=== PATIENT | female | born 1990 | race Caucasian/White ===

== ENCOUNTER → 2019-07-08 | Emergency (ER) | payer OTHER ==
[~2019-07-08] VITALS: Ht 165.1 cm; Wt 61.2 kg
[~2019-07-08] MED LIST: ADDERALL 20 MG20 MG
== END | disposition home or self-care (01) ==
LOC: ER 14:19
DX: S30.0XXA Contusion of lower back and pelvis, initial encounter (principal); W18.39XA Other fall on same level, initial encounter; Y93.89 Activity, other specified; Y92.89 Other specified places as the place of occurrence of the external cause; Y99.8 Other external cause status

== ENCOUNTER 2019-11-19 12:35 | Emergency (ER) | payer OTHER ==
[~2019-11-19] VITALS: Ht 165.1 cm; Wt 63.5 kg
[2019-11-19] MEDS ORDERED: ZITHROMAX500 MG PO (15:48)
[2019-11-19] MEDS ORDERED: TUSNEL LIQUID178 ML PO (15:48)
== END 2019-11-19 16:44 | disposition home or self-care (01) ==
LOC: ER 12:35
DX: B34.9 Viral infection, unspecified (principal)

== ENCOUNTER 2020-04-29 15:14 | Emergency (ER) | payer OTHER ==
[~2020-04-29] VITALS: Ht 170.2 cm; Wt 61.2 kg
[~2020-04-29 15:14] MED LIST changes: +TUSNEL LIQUID178 ML PO; +ZITHROMAX500 MG PO
== END 2020-04-29 17:46 | disposition home or self-care (01) ==
LOC: ER 15:14
DX: S80.212A Abrasion, left knee, initial encounter (principal); L03.116 Cellulitis of left lower limb; V18.2XXA Unspecified pedal cyclist injured in noncollision transport accident in nontraffic accident, initial encounter; Y93.89 Activity, other specified; Y92.89 Other specified places as the place of occurrence of the external cause; Y99.8 Other external cause status